=== PATIENT | male | born 2005 | race Caucasian/White ===

== ENCOUNTER 2024-11-16 19:14 | Emergency (ER) | payer BC ==
[2024-11-16] MEDS ORDERED: Ibuprofen 800 MG TAB ONE (20:25)
== END 2024-11-16 20:34 | disposition home or self-care (01) ==
LOC: ERS 19:14
DX: S16.1XXA Strain of muscle, fascia and tendon at neck level, initial encounter (principal); M25.531 Pain in right wrist; V49.40XA Driver injured in collision with unspecified motor vehicles in traffic accident, initial encounter
CPT/HCPCS: 99284